=== PATIENT | female | born 1955 | race Caucasian/White ===

== ENCOUNTER 2025-01-02 10:12 | Emergency (ER) | payer MEDICARE ==
[~2025-01-02] VITALS: Ht 157.5 cm; Wt 83.9 kg
[~2025-01-02 10:12] MED LIST: ARTTEAOPSB OS; PRED20 PO; VALA500 PO
[2025-01-02] MEDS ORDERED: PredniSONE 20 MG Tab PO ONE ×2 (10:50→13:40)
[2025-01-02] MEDS ORDERED: Artificial Tear Opth Oint 3.5 GM RIGHTEYE ONE (10:55)
[2025-01-02] MEDS ORDERED: ValACYClovir HCL 500 MG Tab PO ONE (10:55)
[2025-01-02] MEDS ORDERED: Peg 400/Hypromellose/Glycerin 15 DROP/ML BTL RIGHTEYE ONE (10:55)
[2025-01-02] MEDS ORDERED: VALACYCLOVIR1000 M1 PO (10:59)
[2025-01-02] MEDS ORDERED: PRED20 PO (10:59)
[2025-01-02] MEDS ORDERED: Dextran/Hypromellose/Glycerin 15 DROP/ML BTL RIGHTEYE ONE (11:05)
[2025-01-02 12:34] LABS: BASOPHILS ABSOLUTE AUTO 0.05 K/mm3 (0.00-0.23); BASOPHILS PERCENT AUTO 1 % (0-2); EOSINOPHILS PERCENT AUTO 1 % (0-6); Hematocrit 42.9 % (33.0-51.0); Hemoglobin 13.6 g/dL (11.5-16.0); IMMATURE GRAN ABSOLUTE AUTO 0.02 K/mm3 (0.00-0.10); IMMATURE GRAN PERCENT AUTO 0 % (0-1); LYMPHOCYTES ABSOLUTE AUTO 1.61 K/mm3 (0.84-5.20); LYMPHOCYTES PERCENT AUTO 23 % (21-46); MONOCYTES ABSOLUTE AUTO 0.52 K/mm3 (0.16-1.47); MONOCYTES PERCENT AUTO 7 % (4-13); Mean Corpuscular HGB 28.9 pg (26.0-34.0); Mean Corpuscular HGB Conc 31.7 g/dL (31.5-36.5); Mean Corpuscular Volume 91 fL (80-100); Mean Platelet Volume 10.3 fL (9.1-12.4); NEUTROPHILS ABSOLUTE AUTO 4.78 K/mm3 (1.96-9.15); NEUTROPHILS PERCENT AUTO 68 % (41-73); Platelet Count 234 K/mm3 (150-400); RDW Standard Deviation 47.1 fL (35.1-46.3); White Blood Cell Count 7.08 K/mm3 (4.00-11.30)
[2025-01-02 12:46] LABS: Albumin, Blood 3.6 g/dL (3.4-5.0); Bilirubin, Total 0.4 mg/dL (0.1-1.0); Bun/Creatinine Ratio 34.7 (12.0-20.0); Calcium, Blood 8.9 mg/dL (8.5-10.1); Creatinine, Blood 0.55 mg/dL (0.40-1.00); Globulin, Blood 3.7 g/dL (2.2-4.0); Total Protein, Blood 7.3 g/dL (6.4-8.2)
== END 2025-01-02 14:17 | disposition home or self-care (01) ==
LOC: ER 10:12
PROVIDERS: Student in an Organized Health Care Education/Training Program
DX: G51.0 Bell's palsy (principal); Z79.52 Long term (current) use of systemic steroids; Z79.899 Other long term (current) drug therapy; Z88.5 Allergy status to narcotic agent
CPT/HCPCS: 80053; 85025; 93005; 93010; 99284-25; A9270; J7512